=== PATIENT | female | born 1970 | race Caucasian/White ===

== ENCOUNTER 2021-06-25 20:53 | Emergency (ER) | payer BC ==
[~2021-06-25] VITALS: Ht 172.7 cm; Wt 67.1 kg
[2021-06-25 21:22] VITALS: BP_SYST 151
--- NOTE | 2021-06-25 22:55 | NUR ---
DR. SINGH WITH PATIENT PERFORMING ASSESSMENT.
[2021-06-25] MEDS ORDERED: NACL 0.9% 1,000 ML IV ONE (23:00)
[2021-06-25] MEDS ORDERED: KETOROLAC TROMETHAMINE 30 MG VIAL IVP ONE (23:00)
--- NOTE | 2021-06-25 23:06 | NUR ---
PATIENT RESTING IN BED WITH EYES OPEN, NO C/O PAIN OR S/S OF DISCOMFORT. PATIENT'S CHEST RISE AND FALL SYMMETRICAL. BED IN LOW AND LOCKED POSITION.
--- NOTE | 2021-06-25 23:06 | NUR ---
PATIENT GAVE URINE SAMPLE. SAMPLE LABELED, TIME, INITIAL, AND DELIVERED TO LAB.
[2021-06-25] MEDS ORDERED: IBUP-1969 PO (23:46)
[2021-06-25] MEDS ORDERED: HYDR-3917 PO (23:46)
--- NOTE | 2021-06-26 00:53 | NUR ---
PATIENT RESTING IN BED WITH EYES OPEN, NO C/O PAIN OR S/S OF DISCOMFORT. PATIENT'S CHEST RISE AND FALL SYMMETRICAL. NS INFUSING VIA 22G IV IN RIGHT HAND. BED IN LOW AND LOCKED POSITION.
[2021-06-26 01:48] VITALS: BP_SYST 138
--- NOTE | 2021-06-26 01:48 | NUR ---
PATIENT VERBALIZED UNDERSTANDING OF AFTERCARE INSTRUCTIONS, NO FURTHER QUESTIONS. PATIENT LEFT WITH ALL BELONGINGS. PATIENT A/OX4, NO C/O PAIN, AND PATIENT HAS STRONG GAIT.
== END 2021-06-26 01:30 | disposition home or self-care (01) ==
LOC: SED 20:53
DX: R51.9 Headache, unspecified (principal); R07.89 Other chest pain; Z79.899 Other long term (current) drug therapy
CPT/HCPCS: 93005; 96361; 96374; 99283; J1885; J7030

== ENCOUNTER 2023-08-12 20:40 | Inpatient (IN) | payer BC ==
[~2023-08-12] VITALS: Ht 175.3 cm; Wt 69.9 kg
[~2023-08-12 20:40] MED LIST: HYDR-3917 PO; IBUP-1969 PO
[2023-08-12 20:58] VITALS: BP_SYST 152; PULSE 75; RESP 18; TEMP 98.4; O2SAT 98
[2023-08-12 22:54] LABS: BASOPHILS % (AUTO) 0.6 % (0.0-2.0); EOSINOPHILS # (AUTO) 0.1 K/uL (0.0-0.4); EOSINOPHILS % (AUTO) 1.2 % (0.0-4.0); HEMATOCRIT 38.2 % (36-48); HEMOGLOBIN 12.9 g/dL (12.0-16.0); LYMPHOCYTES # (AUTO) 2.3 K/uL (1.0-5.5); MEAN CORPUSCULAR HEMOGLOBIN 29 pg (27-31); MEAN CORPUSCULAR HGB CONC 34 % (32-36); MEAN CORPUSCULAR VOLUME 85 fL (79.0-98.0); MONOCYTES # (AUTO) 0.7 K/uL (0.0-1.0); MONOCYTES % (AUTO) 8.8 % (1.7-9.3); NEUTROPHILS # (AUTO) 4.8 K/uL (1.8-7.7); NEUTROPHILS % (AUTO) 60.4 % (40.0-70.0); PLATELET COUNT (AUTO) 335 K/uL (130-430); RED BLOOD CELL COUNT(AUTO) 4.48 MIL/uL (4.2-6.2); RED CELL DISTRIBUTION WIDTH 15.2 % (9.0-15.0)
[2023-08-12] MEDS ORDERED: PIPERACILLIN/TAZOBACTAM 3.375 GM/VIAL (ZOSYN) IV ONE (22:55)
[2023-08-12 23:01] LABS: CALCIUM 9.2 mg/dL (8.4-11.0); CREATININE 0.91 mg/dL (0.55-1.30); POTASSIUM 3.6 mmol/L (3.5-5.1)
[2023-08-12] MEDS: PIPERACILLIN/TAZO 3.375 GM in NS 50 ML IV ONE (23:08)
[2023-08-12] MEDS: DIPHTH,PERTUSS(ACELL),TET VAC 0.5 ML VIAL (Tdap) I.M. ONE (23:15)
[2023-08-12] MEDS ORDERED: LORA10TA7 PO (23:56)
[2023-08-13] MEDS: NACL 0.9% 1,000 ML IV SCH (00:18)
[2023-08-13] MEDS ORDERED: VANCOMYCIN HCL 1000 MG/VIAL IV ONE (00:57)
[2023-08-13] MEDS: VANCOMYCIN HCL 1,000 MG in NS 250 ML IV ONE (01:09)
[2023-08-13 02:43] VITALS: O2SAT 98
[2023-08-13] MEDS: PIPERACILLIN/TAZO 3.375 GM in NS 50 ML IV SCH (05:24)
[2023-08-13] MEDS: PIPERACILLIN/TAZOBACTAM 3.375 GM/VIAL (ZOSYN) IV ONE (05:31)
[2023-08-13 06:22] LABS: CALCIUM 8.8 mg/dL (8.4-11.0); CREATININE 0.86 mg/dL (0.55-1.30); POTASSIUM 3.9 mmol/L (3.5-5.1)
[2023-08-13 06:31] LABS: ALBUMIN 3.3 g/dL (3.4-4.8); TOTAL BILIRUBIN 1.2 mg/dL (0.0-1.0); TOTAL PROTEIN, SERUM 6.5 g/dL (6.4-8.3)
[2023-08-13 07:24] LABS: BASOPHILS % (AUTO) 0.4 % (0.0-2.0); EOSINOPHILS # (AUTO) 0.1 K/uL (0.0-0.4); EOSINOPHILS % (AUTO) 1.3 % (0.0-4.0); HEMATOCRIT 36.2 % (36-48); HEMOGLOBIN 12.2 g/dL (12.0-16.0); LYMPHOCYTES % (AUTO) 27.8 % (20.5-51.5); MEAN CORPUSCULAR HEMOGLOBIN 29 pg (27-31); MEAN CORPUSCULAR HGB CONC 34 % (32-36); MEAN CORPUSCULAR VOLUME 86 fL (79.0-98.0); MONOCYTES # (AUTO) 0.6 K/uL (0.0-1.0); MONOCYTES % (AUTO) 8.7 % (1.7-9.3); NEUTROPHILS # (AUTO) 4.4 K/uL (1.8-7.7); NEUTROPHILS % (AUTO) 61.8 % (40.0-70.0); PLATELET COUNT (AUTO) 317 K/uL (130-430); RED CELL DISTRIBUTION WIDTH 14.9 % (9.0-15.0)
[2023-08-13 08:05] VITALS: BP_SYST 116; PULSE 71; RESP 16; TEMP 98.4; O2SAT 97
[2023-08-13] MEDS: VANCOMYCIN HCL 1,000 MG in NS 250 ML IV SCH (08:12)
[2023-08-13] MEDS: ACETAMINOPHEN 325 MG TABLET PO PRN (10:38)
[2023-08-13 11:39] VITALS: BP_SYST 140; PULSE 70; RESP 16; TEMP 99; O2SAT 97
[2023-08-13] MEDS: PIPERACILLIN/TAZO 3.375 GM in NS 50 ML IV ONE (13:12)
[2023-08-13 16:45] VITALS: BP_SYST 134; PULSE 74; RESP 17; TEMP 98.4; O2SAT 96
[2023-08-13] MEDS ORDERED: PIPERACILLIN/TAZO 3.375 GM in NS 50 ML IV SCH (18:00)
[2023-08-13] MEDS: CLINDAMYCIN 300 MG/50 ML D5W 50 ML IV SCH (18:13)
[2023-08-13 19:00] VITALS: BP_SYST 139; PULSE 68; RESP 18; TEMP 97.7; O2SAT 96
[2023-08-13 20:00] VITALS: BP_SYST 139; PULSE 68; RESP 18; TEMP 97.7; O2SAT 96
[2023-08-14] VITALS (8 sets, daily range): BP systolic 125–152; PULSE 65–70; RESP 16–20; TEMP 98.2–98.7; O2SAT 95–98
[2023-08-14 04:43] LABS: BASOPHILS % (AUTO) 0.6 % (0.0-2.0); EOSINOPHILS # (AUTO) 0.1 K/uL (0.0-0.4); HEMATOCRIT 36.7 % (36-48); HEMOGLOBIN 12.2 g/dL (12.0-16.0); LYMPHOCYTES % (AUTO) 28.2 % (20.5-51.5); MEAN CORPUSCULAR HEMOGLOBIN 29 pg (27-31); MEAN CORPUSCULAR HGB CONC 33 % (32-36); MEAN CORPUSCULAR VOLUME 86 fL (79.0-98.0); MONOCYTES # (AUTO) 0.6 K/uL (0.0-1.0); NEUTROPHILS # (AUTO) 4.3 K/uL (1.8-7.7); NEUTROPHILS % (AUTO) 60.2 % (40.0-70.0); PLATELET COUNT (AUTO) 325 K/uL (130-430); RED BLOOD CELL COUNT(AUTO) 4.26 MIL/uL (4.2-6.2); WHITE BLOOD COUNT (AUTO) 7.2 K/uL (4.8-10.8)
[2023-08-14 05:09] LABS: ALBUMIN 3.1 g/dL (3.4-4.8); CALCIUM 8.7 mg/dL (8.4-11.0); CREATININE 0.87 mg/dL (0.55-1.30); PHOSPHORUS 3.2 mg/dL (2.7-4.5); POTASSIUM 4.5 mmol/L (3.5-5.1); TOTAL BILIRUBIN 1.2 mg/dL (0.0-1.0); TOTAL PROTEIN, SERUM 6.4 g/dL (6.4-8.3)
[2023-08-15 07:35] LABS: ALBUMIN 2.9 g/dL (3.4-4.8); CALCIUM 8.7 mg/dL (8.4-11.0); CREATININE 0.87 mg/dL (0.55-1.30); TOTAL BILIRUBIN 0.8 mg/dL (0.0-1.0); TOTAL PROTEIN, SERUM 6.1 g/dL (6.4-8.3); VANCOMYCIN,TROUGH 12.4 ug/mL (10.0-20.0)
[2023-08-15 08:00] VITALS: BP_SYST 141; PULSE 67; RESP 16; TEMP 98.1; O2SAT 95
[2023-08-15] MEDS ORDERED: CLIN-142 PO (09:47)
[2023-08-15 12:00] VITALS: BP_SYST 141; PULSE 70; RESP 16; TEMP 97.9; O2SAT 99
[2023-08-15 15:44] VITALS: BP_SYST 141; PULSE 70; RESP 16; TEMP 97.9; O2SAT 99
[2023-08-16] MEDS ORDERED: DOXY100T2 PO (12:45)
== END 2023-08-15 16:10 | disposition home or self-care (01) | DRG 155 ==
LOC: SED 20:40 → SMU 23:47
PROVIDERS: ADMIT General Practice; ATTEND General Practice
DX: J34.0 Abscess, furuncle and carbuncle of nose (principal); L03.211 Cellulitis of face; J32.9 Chronic sinusitis, unspecified; Z79.899 Other long term (current) drug therapy
CPT/HCPCS: 36415; 80048; 80053; 80202; 83605; 83735; 84100; 85025; 85651; 87040; 87070; 87081; 87186; 90715; 96365; 99285; J2543; J3370; J3490; J7050